=== PATIENT | male | born 1980 | race African-American/Black ===

== ENCOUNTER 2017-03-15 18:58 | Emergency (ER) | payer OTHER ==
[~2017-03-15] VITALS: Ht 180.3 cm; Wt 81.6 kg
[~2017-03-15 18:58] MED LIST: BACLOFEN10 MG ORAL; BACTRIM DS TAB1 EAC1 ORAL; COLACE100 MG ORAL; DIFLUCAN200 MG ORAL; FLONASE1 SPRAYS NASAL; HYDROCHLOROTH12.5 MG ORAL; IBUPROFEN600 MG ORAL; IBUPROFEN800 MG ORAL; KEFLEX500 MG ORAL; KENALOG 0.1% CR15 GM APPLIC; LEVAQUIN500 MG ORAL; MEDROL DOSEPAK4 MG ORAL; METRONIDAZOLE500 MG ORAL; NKM; NORCO 5-325 TA1 EACH ORAL; NYSTATIN CREAM15 GM TOPIC; TRAMADOL HCL50 MG ORAL
[2017-03-15 19:12] VITALS: BP 166/88
--- NOTE | 2017-03-15 19:18 | Emergency Room Report ---
History of Present Illness General Chief Complaint: Upper Respiratory Illness Source: Patient Present Illness HPI The patient is a 36-year-old male presenting for nasal discharge, sneezing, and coughing. 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 He denies any known sick contacts or recent travel. He denies any fever or chills. He states that he hears occasional wheezing while breathing. He denies history of asthma. He denies any other symptoms including nausea, vomiting, chest pain, shortness of breath, rash, headache, dizziness Allergies: Coded Allergies: No Known Allergies (Unverified , 07/24/12) Patient History Past Medical History: see triage record Pertinent Family History: none Reviewed Nursing Documentation: PMH: Agreed, PSxH: Agreed Nursing Documentation-PMH Hx Cardiac Problems: No Hx Hypertension: Yes Hx Cancer: No Hx Gastrointestinal Problems: Yes - Diverticulosis Hx Neurological Problems: No Review of Systems All Other Systems: negative except mentioned in HPI Physical Exam Vital Signs Date Time Temp Pulse Resp B/P (MAP) Pulse Ox O2 Delivery O2 Flow Rate FiO2 03/15/17 19:02 98.1 70 20 166/88 98 Room Air Sp02 EP Interpretation: reviewed, normal General Appearance: no apparent distress, alert, GCS 15, non-toxic Head: normocephalic, atraumatic Eyes: bilateral eye normal inspection, bilateral eye PERRL ENT: hearing grossly normal, normal pharynx, no angioedema, normal voice, uvula midline, nasal congestion Neck: full range of motion, supple/symm/no masses Respiratory: chest non-tender, lungs clear, normal breath sounds, speaking full sentences Musculoskeletal: back normal, gait/station normal, normal range of motion, non- tender Neurologic: alert, oriented x3, responsive, motor strength/tone normal, sensory intact, speech normal Psychiatric: judgement/insight normal, memory normal, mood/affect normal, no suicidal/homicidal ideation Skin: normal color, no rash, warm/dry, well hydrated Lymphatic: no adenopathy Medical Decision Making PA Attestation Dr. Weber is my supervising physician. Patient management was discussed with my supervising physician Diagnostic Impression: Primary Impression: Allergic rhinitis Qualified Codes: J30.9 - Allergic rhinitis, unspecified ER Course The patient is a 36-year-old male presenting for allergic symptoms after being exposed to particles at work Differential diagnosis include but not limited to pharyngitis, rhinitis, sinusitis, AOM, bronchitis, PNA Physical exam: Afebrile. No apparent distress HEENT exam reveals bilateral nasal congestion with edema. Otherwise unremarkable Chest x-ray unremarkable The patient will be discharged home with prescription for claritin and flonase. ER precautions given Chest X-Ray Diagnostic Results Chest X-Ray Diagnostic Results : Chest X-Ray Ordered: Yes # of Views/Limited/Complete: 1 View Indication: Other - cough EP Interpretation: Yes Interpretation: no consolidation, no effusion, no pneumothorax Impression: No acute disease Electronically Signed by: DO FREEDOM Sheriff Scribe Text I am acting as scribe for my supervising physician. My supervising physician's interpretation of the chest xrays are there is no consolidation, no effusion, no acute cardiopulmonary disease, no pneumothorax Last Vital Signs Date Time Temp Pulse Resp B/P (MAP) Pulse Ox O2 Delivery O2 Flow Rate FiO2 03/15/17 19:12 98.1 70 20 166/88 98 Room Air Status: improved Disposition: HOME, SELF-CARE Condition: Improved Scripts Loratadine/Pseudoephedrine (CLARITIN-D 24 HOUR TABLET) 1 Each Tab.er.24h 1 TAB PO DAILY, #30 TAB Prov: TERZIRAN PARKER P.A. 03/15/17 Fluticasone Propionate (Flonase Allergy Relief) 9.9 Ml [place].susp 1 SPRAYS NS DAILY, #10 ML Prov: TERZIAN,RAN P.A. 03/15/17 RAN MCKINNEY P.A. Mar 15, 2017 19:18
[2017-03-15] MEDS ORDERED: CLARITIN-D 241 EACH PO (19:35)
[2017-03-15] MEDS ORDERED: FLONASE ALLERG9.9 ML NS (19:35)
[2017-03-15 19:44] VITALS: BP 160/80
--- NOTE | 2017-03-16 10:55 | Diagnostic Imaging Report ---
Indication: COUGH Technique: One view of the chest Comparison: 05/07/2011 Findings: Lungs and pleural spaces are clear. Heart size is normal. No significant change Impression: Negative
== END 2017-03-15 19:44 | disposition home or self-care (01) ==
LOC: EMR 19:20
DX: J30.9 Allergic rhinitis, unspecified (principal); I10 Essential (primary) hypertension; K57.90 Diverticulosis of intestine, part unspecified, without perforation or abscess without bleeding
CPT/HCPCS: 71010; 99284

== ENCOUNTER 2017-05-24 18:50 | Emergency (ER) | payer OTHER ==
[~2017-05-24] VITALS: Ht 180.3 cm; Wt 86.2 kg
[~2017-05-24 18:50] MED LIST changes: +CLARITIN-D 241 EACH PO; +FLONASE ALLERG9.9 ML NS
[2017-05-24] MEDS ORDERED: UNOBMED (19:19)
--- NOTE | 2017-05-24 19:25 | Emergency Room Report ---
History of Present Illness General Chief Complaint: Allergies Source: Patient Present Illness HPI 36-year-old male presents emergency department complaining of sneezing, rhinorrhea, intermittent nasal congestion times one week. Patient is requesting medication refill for previously prescribed allergy nasal spray. 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 Patient denies fevers, chills, cough, neck pain or stiffness.Denies rash, swelling of the lips or tongue. Allergies: Coded Allergies: No Known Allergies (Unverified , 07/24/12) Patient History Past Medical History: see triage record Past Surgical History: none Pertinent Family History: none Immunizations: UTD Reviewed Nursing Documentation: PMH: Agreed, PSxH: Agreed Nursing Documentation-PMH Past Medical History: No History, Except For Hx Cardiac Problems: No Hx Hypertension: Yes Hx Cancer: No Hx Gastrointestinal Problems: Yes - Diverticulosis Hx Neurological Problems: No Review of Systems All Other Systems: negative except mentioned in HPI Physical Exam Vital Signs Date Time Temp Pulse Resp B/P (MAP) Pulse Ox O2 Delivery O2 Flow Rate FiO2 05/24/17 19:14 97.7 57 16 192/112 98 Room Air Sp02 EP Interpretation: reviewed, normal General Appearance: no apparent distress, alert, GCS 15, non-toxic Head: normocephalic, atraumatic Eyes: bilateral eye normal inspection, bilateral eye PERRL ENT: hearing grossly normal, normal voice, uvula midline, nasal congestion Neck: full range of motion Respiratory: lungs clear, normal breath sounds, speaking full sentences Cardiovascular #1: regular rate, rhythm Musculoskeletal: back normal, gait/station normal, normal range of motion, non- tender Neurologic: alert, oriented x3, responsive, motor strength/tone normal, sensory intact, speech normal Skin: normal color, no rash, warm/dry, well hydrated Medical Decision Making PA Attestation Dr. peck is my supervising Physician whom patient management has been discussed with. Diagnostic Impression: Primary Impression: Allergic rhinitis Qualified Codes: J30.2 - Other seasonal allergic rhinitis ER Course 36-year-old male presents emergency department complaining of sneezing, rhinorrhea, intermittent nasal congestion times one week. Patient is requesting medication refill for previously prescribed allergy nasal spray. 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 Patient denies fevers, chills, cough, neck pain or stiffness.Denies rash, swelling of the lips or tongue. Ddx considered but are not limited to: rebound congestion, URI, rhinitis, allergies, sinusitis just to name a few Vital signs: are WNL, pt. is afebrile H&PE are most consistent with need for medication refill for nasal spray to manage allergic rhinitis. ORDERS: none required at this time, the diagnosis is clinical ED INTERVENTIONS: None required at this time. DISCHARGE: At this time pt. is stable for d/c to home. Will provide printed patient care instructions, and any necessary prescriptions. Care plan and follow up instructions have been discussed with the patient prior to discharge. Last Vital Signs Date Time Temp Pulse Resp B/P (MAP) Pulse Ox O2 Delivery O2 Flow Rate FiO2 05/24/17 19:14 97.7 57 16 192/112 98 Room Air Disposition: HOME, SELF-CARE Condition: Stable Scripts Mometasone Furoate (NASONEX) 17 Gm [place].pump 2 SPRAYS NASAL DAILY, #17 GM 0 Refills Prov: Swathi Puente 05/24/17 Patient Instructions: Allergies Additional Instructions: Take medications as directed. Follow up with a Primary Care Provider in 3-5 days, even if your symptoms have resolved. --Please review list of primary care clinics, if you do not already have a primary care provider Return sooner to ED if new symptoms occur, or current symptoms become worse. - Please note that this Emergency Department Report was dictated using SecurSolutionsoperating room assistant technology software, occasionally this can lead to erroneous entry secondary to interpretation by the dictation equipment. Swathi Puente May 24, 2017 19:25
[2017-05-24] MEDS ORDERED: NASONEX17 GM NASAL (19:26)
[2017-05-24 19:31] VITALS: BP 172/99
== END 2017-05-24 19:30 | disposition home or self-care (01) ==
LOC: EMR 19:25
DX: J30.9 Allergic rhinitis, unspecified (principal); I10 Essential (primary) hypertension
CPT/HCPCS: 99283

== ENCOUNTER 2018-06-24 12:39 | Emergency (ER) | payer OTHER ==
[~2018-06-24] VITALS: Ht 180.3 cm; Wt 86.2 kg
[~2018-06-24 12:39] MED LIST changes: +NASONEX17 GM NASAL; +UNOBMED
[2018-06-24] MEDS ORDERED: AMLODIPINE BESY10 MG ORAL (12:52)
[2018-06-24 13:06] VITALS: BP 146/87
[2018-06-24] MEDS ORDERED: PREDNISONE20 MG ORAL (13:20)
[2018-06-24] MEDS ORDERED: BENADRYL25 MG ORAL (13:20)
[2018-06-24 13:30] VITALS: BP 146/87
--- NOTE | 2018-06-24 18:07 | Emergency Room Report ---
History of Present Illness General Chief Complaint: Allergic Reaction Source: Patient Present Illness HPI The patient is a 38-year-old male presenting for possible allergic reaction. He states that he has been taking Bactrim for a skin infection. Two days after beginning this course of antibiotics, he developed hives. He states that he then stopped the medication and the hives resolved. He admits to having similar reaction after using Bactrim in the past. He states that the symptoms have completely resolved at this point. He denies any other symptoms including N, V, F, chills, SOB, CP, dizziness, diarrhea Allergies: Coded Allergies: No Known Allergies (Unverified , 07/24/12) Patient History Past Medical History: see triage record Pertinent Family History: none Reviewed Nursing Documentation: PMH: Agreed; PSxH: Agreed Nursing Documentation-PMH Past Medical History: No History, Except For Hx Cardiac Problems: No Hx Hypertension: Yes Hx Cancer: No Hx Gastrointestinal Problems: Yes - Diverticulosis Hx Neurological Problems: No Review of Systems All Other Systems: negative except mentioned in HPI Physical Exam Vital Signs Date Time Temp Pulse Resp B/P (MAP) Pulse Ox O2 Delivery O2 Flow Rate FiO2 06/24/18 12:48 98.1 68 17 153/103 98 Room Air Sp02 EP Interpretation: reviewed, normal General Appearance: no apparent distress, alert, GCS 15, non-toxic Head: normocephalic, atraumatic Eyes: bilateral eye normal inspection, bilateral eye PERRL Neck: full range of motion, supple/symm/no masses Respiratory: chest non-tender, lungs clear, normal breath sounds, speaking full sentences Cardiovascular #1: regular rate, rhythm, no edema Musculoskeletal: back normal, gait/station normal, normal range of motion, non- tender Neurologic: alert, oriented x3, responsive, motor strength/tone normal, sensory intact, speech normal Psychiatric: judgement/insight normal, memory normal, mood/affect normal, no suicidal/homicidal ideation Skin: normal color, no rash, warm/dry, well hydrated Lymphatic: no adenopathy Medical Decision Making PA Attestation Dr. Zapata is my supervising physician. Patient management was discussed with my supervising physician Diagnostic Impression: Primary Impression: Allergic reaction Qualified Codes: T78.40XA - Allergy, unspecified, initial encounter ER Course The patient is a 38-year-old male presenting for possible allergic reaction. Differential diagnosis considered not limited to: Anaphylaxis, hives, contact dermatitis, among others Physical exam: No apparent distress No hypotension No angioedema RRR. Lungs clear to auscultation bilaterally Skin warm and dry. No erythema. No wheals. The patient was told to discontinue Bactrim and to follow-up with his primary doctor as soon as possible. He was also told to have allergy testing. He is given prescription for short course of oral steroids and Benadryl. ER precautions given Last Vital Signs Date Time Temp Pulse Resp B/P (MAP) Pulse Ox O2 Delivery O2 Flow Rate FiO2 06/24/18 13:30 98.1 74 17 146/87 99 Room Air Status: improved Disposition: HOME, SELF-CARE Condition: Improved Scripts Prednisone* (PREDNISONE*) 20 Mg Tablet 20 MG ORAL DAILY, #5 TAB 0 Refills Prov: RAN MCKINNEY 06/24/18 Diphenhydramine Hcl* (BENADRYL*) 25 Mg Capsule 25 MG ORAL Q6H PRN for Itching, #20 CAP Prov: RAN MCKINNEY 06/24/18 Referrals: NOT CHOSEN [facility]/,REFERRING (PCP) Patient Instructions: Epinephrine injection, Hives, Drug Allergy Additional Instructions: I discussed my findings with the patient. All questions and concerns have been answered. Treatment and medication compliance have been addressed. I advised the patient that they need to follow up with PMD in 3-5 days. Return to ED if symptoms worsen, new symptoms arise, or if needed for any reason. Patient verbalized understanding of discharge instructions. Please follow up with your primary doctor for further testing and treatment as soon as possible. RAN MCKINNEY Jun 24, 2018 18:07
== END 2018-06-24 13:30 | disposition home or self-care (01) ==
LOC: EMR 13:00
DX: L50.0 Allergic urticaria (principal); T37.0X5A Adverse effect of sulfonamides, initial encounter; I10 Essential (primary) hypertension
CPT/HCPCS: 99283

== ENCOUNTER 2018-11-08 14:46 | Emergency (ER) | payer OTHER ==
[~2018-11-08] VITALS: Ht 180.3 cm; Wt 83.9 kg
[~2018-11-08 14:46] MED LIST changes: +AMLODIPINE BESY10 MG ORAL; +BENADRYL25 MG ORAL; +PREDNISONE20 MG ORAL
--- NOTE | 2018-11-08 15:01 | NUR ---
ED Nurse Note: Pt came into the ER w/ complaints of a rash on bilateral axilla x 2 weeks. Pt states that he usually has a cream for it. Pt denies having pain but states that it itches. No redness or swelling noted. Pt is A + O x4. Ambulatory. Skin warm to touch.
[2018-11-08 15:02] VITALS: BP 170/103
[2018-11-08] MEDS ORDERED: KENALOG 0.5% CR15 GM APPLIC (15:29)
[2018-11-08 15:35] VITALS: BP 169/100
--- NOTE | 2018-11-08 15:36 | NUR ---
ER DISCHARGE NOTE: Patient is cleared to be discharged per ERMD, pt is aox4, on room air, with stable vital signs. pt was given dc and prescription instructions, pt was able to verbalize understanding, pt id band removed without complications. pt is able to ambulate with steady gait. pt took all belongings.
--- NOTE | 2018-11-08 15:51 | Emergency Room Report ---
History of Present Illness General Chief Complaint: Skin Rash/Abscess Source: Patient Present Illness HPI 38-year-old male presents to the emergency department complaining of recurrent dermatitis in the bilateral axillary areas for which she will need a medication refill for her. Patient states that he is been having this chronic condition for over 2 years now and his symptoms are intermittent and usually resolve completely with application of triamcinolone cream. Patient states he is currently out of his medication. Pt. denies fevers, chills or swollen tender lymph nodes. Denies lesions/rashes elsewhere on the body. Denies new medications or body washes or creams. Denies swelling of the lips, tongue , throat or airway. Denies wheezing, or shortness of breath. Denies recent travel , recent illness or ill contacts. denies blisters, oral lesions, or sloughing of the skin. He denies pain. Allergies: Coded Allergies: No Known Allergies (Unverified , 07/24/12) Patient History Past Medical History: see triage record Past Surgical History: none Pertinent Family History: none Immunizations: UTD Reviewed Nursing Documentation: PMH: Agreed; PSxH: Agreed Nursing Documentation-PMH Past Medical History: No History, Except For Hx Cardiac Problems: No Hx Hypertension: Yes Hx Cancer: No Hx Gastrointestinal Problems: Yes - Diverticulitis Hx Neurological Problems: No Review of Systems All Other Systems: negative except mentioned in HPI Physical Exam Vital Signs Date Time Temp Pulse Resp B/P (MAP) Pulse Ox O2 Delivery O2 Flow Rate FiO2 11/08/18 14:55 98.1 68 18 96 Room Air 11/08/18 15:02 170/103 Sp02 EP Interpretation: reviewed, normal General Appearance: no apparent distress, alert, GCS 15, non-toxic Head: normocephalic, atraumatic Eyes: bilateral eye normal inspection, bilateral eye PERRL ENT: hearing grossly normal, normal voice Neck: full range of motion Respiratory: chest non-tender, lungs clear, normal breath sounds, no wheezing, speaking full sentences Cardiovascular #1: regular rate, rhythm Musculoskeletal: back normal, gait/station normal, normal range of motion, non- tender Neurologic: alert, oriented x3, responsive, motor strength/tone normal, sensory intact, speech normal, grossly normal Psychiatric: judgement/insight normal Skin: normal color, warm/dry, well hydrated, rash - erythematous dry plaques in the axilla bialterally, no LAD, no blisters, vessicles or fluctuance. Lymphatic: no adenopathy Medical Decision Making PA Attestation Dr. Lowry is my supervising Physician whom patient management has been discussed with. Diagnostic Impression: Primary Impression: Dermatitis ER Course 38-year-old male presents to the emergency department complaining of recurrent dermatitis in the bilateral axillary areas for which she will need a medication refill for her. Patient states that he is been having this chronic condition for over 2 years now and his symptoms are intermittent and usually resolve completely with application of triamcinolone cream. Patient states he is currently out of his medication. Pt. denies fevers, chills or swollen tender lymph nodes. Denies lesions/rashes elsewhere on the body. Denies new medications or body washes or creams. Denies swelling of the lips, tongue , throat or airway. Denies wheezing, or shortness of breath. Denies recent travel , recent illness or ill contacts. denies blisters, oral lesions, or sloughing of the skin. He denies pain. Ddx considered but are not limited to cellulitis, scabies, shingles, varicella, dermatitis, urticaria, eczema, tinea, viral exanthem, SJS Vital signs: are WNL, pt. is afebrile H&PE are most consistent with dermatitis ORDERS: none required at this time, the diagnosis is clinical ED INTERVENTIONS: None required at this time. DISCHARGE: At this time pt. is stable for d/c to home. Will provide printed patient care instructions, and any necessary prescriptions. Care plan and follow up instructions have been discussed with the patient prior to discharge. Last Vital Signs Date Time Temp Pulse Resp B/P (MAP) Pulse Ox O2 Delivery O2 Flow Rate FiO2 11/08/18 15:02 98.2 75 20 170/103 97 Room Air Status: improved Disposition: HOME, SELF-CARE Condition: Stable Scripts Triamcinolone Acet (Triamcinolone Acetonide) 15 Gm Cream..g. 1 APPLIC APPLIC BID, #15 GM 3 Refills Prov: Swathi Puente 11/08/18 Patient Instructions: Rash Additional Instructions: Take medications as directed. Follow up with a Primary Care Provider in 3-5 days, even if your symptoms have resolved. --Please review list of primary care clinics, if you do not already have a primary care provider Return sooner to ED if new symptoms occur, or current symptoms become worse. - Please note that this Emergency Department Report was dictated using [employer] cup expander technology software, occasionally this can lead to erroneous entry secondary to interpretation by the dictation equipment. Swathi Puente November 08, 2018 15:51
== END 2018-11-08 15:36 | disposition home or self-care (01) ==
LOC: EMR 15:20
DX: L30.9 Dermatitis, unspecified (principal); I10 Essential (primary) hypertension
CPT/HCPCS: 99282

== ENCOUNTER 2019-01-09 14:12 | Emergency (ER) | payer OTHER ==
[~2019-01-09] VITALS: Ht 180.3 cm; Wt 86.2 kg
[~2019-01-09 14:12] MED LIST changes: +KENALOG 0.5% CR15 GM APPLIC
[2019-01-09 14:27] VITALS: BP 128/80
--- NOTE | 2019-01-09 14:44 | Emergency Room Report ---
History of Present Illness General Chief Complaint: Abdominal Pain Source: Patient Present Illness HPI Patient presents with complaints of lower abdominal pressure and discomfort he reports that he has had diverticulitis several times and this felt similar to the initial sensation of that Denies any chest pain denies any vomiting denies any diarrhea He did feel that he had some decreased bowel movements over the past several days denies any rash denies any change in medications denies any trauma Allergies: Coded Allergies: No Known Allergies (Unverified , 07/24/12) Patient History Past Medical History: see triage record Pertinent Family History: none Reviewed Nursing Documentation: PMH: Agreed; PSxH: Agreed Nursing Documentation-PM Past Medical History: No History, Except For Hx Cardiac Problems: No Hx Hypertension: Yes Hx Cancer: No Hx Gastrointestinal Problems: Yes - Diverticulitis Hx Neurological Problems: No Review of Systems All Other Systems: negative except mentioned in HPI Physical Exam Vital Signs Date Time Temp Pulse Resp B/P (MAP) Pulse Ox O2 Delivery O2 Flow Rate FiO2 01/09/19 14:18 98.1 84 21 128/80 (96) 98 Room Air Sp02 EP Interpretation: reviewed, normal General Appearance: well appearing, no apparent distress Head: normocephalic, atraumatic Eyes: bilateral eye PERRL, bilateral eye EOMI ENT: hearing grossly normal, normal pharynx, TMs + canals normal, uvula midline Neck: full range of motion, supple, no meningismus, no bony tend Respiratory: lungs clear, normal breath sounds, no rhonchi, no respiratory distress, no retraction, no accessory muscle use Cardiovascular #1: normal peripheral pulses, regular rate, rhythm, no edema, no gallop, no JVD, no murmur Gastrointestinal: normal bowel sounds, non tender - However subjectively complains left lower abdomen discomfort, soft, no mass, no organomegaly, non- distended, no guarding, no hernia, no pulsatile mass, no rebound Genitourinary: no CVA tenderness Musculoskeletal: normal inspection Neurologic: oriented x3, responsive, bacteriologist soil III-XII nml as tested, motor strength/ tone normal, sensory intact Psychiatric: mood/affect normal Skin: other Lymphatic: normal inspection, no adenopathy Medical Decision Making Diagnostic Impression: Primary Impression: Abdominal pain Additional Impression: Diverticulitis ER Course With the history exam and presentation, multiple differentials considered, including but not limited to appendicitis, gastritis, cholecystitis, diverticulitis Patient's abdomen is soft patient is afebrile Initial blood work reveals normal white blood cell count On repeat evaluation patient continues to feel well Given some of the increased pressure and discomfort given the previous diverticulitis patient will be treated symptomatically did not require initial imaging study and is stable for close follow-up attempt Labs Test 01/09/19 14:45 White Blood Count 6.0 K/UL (4.8-10.8) Red Blood Count 4.47 M/UL (4.70-6.10) Hemoglobin 15.7 G/DL (14.2-18.0) Hematocrit 43.7 % (42.0-52.0) Mean Corpuscular Volume 98 FL (80-99) Mean Corpuscular Hemoglobin 35.2 PG (27.0-31.0) Mean Corpuscular Hemoglobin Concent 36.0 G/DL (32.0-36.0) Red Cell Distribution Width 10.1 % (11.6-14.8) Platelet Count 272 K/UL (150-450) Mean Platelet Volume 6.5 FL (6.5-10.1) Neutrophils (%) (Auto) 50.3 % (45.0-75.0) Lymphocytes (%) (Auto) 36.9 % (20.0-45.0) Monocytes (%) (Auto) 8.7 % (1.0-10.0) Eosinophils (%) (Auto) 1.8 % (0.0-3.0) Basophils (%) (Auto) 2.4 % (0.0-2.0) Sodium Level 145 MMOL/L (136-145) Potassium Level 4.0 MMOL/L (3.5-5.1) Chloride Level 107 MMOL/L (98-107) Carbon Dioxide Level 26 MMOL/L (21-32) Anion Gap 12 mmol/L (5-15) Blood Urea Nitrogen 9 mg/dL (7-18) Creatinine 1.0 MG/DL (0.55-1.30) Estimat Glomerular Filtration Rate > 60 mL/min (>60) Glucose Level 96 MG/DL (74-106) Calcium Level 9.4 MG/DL (8.5-10.1) Total Bilirubin 0.4 MG/DL (0.2-1.0) Aspartate Amino Transf (AST/SGOT) 33 U/L (15-37) Alanine Aminotransferase (ALT/SGPT) 39 U/L (12-78) Alkaline Phosphatase 91 U/L (46-116) Total Protein 7.6 G/DL (6.4-8.2) Albumin 4.2 G/DL (3.4-5.0) Globulin 3.4 g/dL Albumin/Globulin Ratio 1.2 (1.0-2.7) Lipase 179 U/L (73-393) Rhythm Strip Diag. Results Rate: 88 Rhythm: NSR, no PVC's Last Vital Signs Date Time Temp Pulse Resp B/P (MAP) Pulse Ox O2 Delivery O2 Flow Rate FiO2 01/09/19 14:18 98.1 84 21 128/80 (96) 98 Room Air Status: improved Disposition: HOME, SELF-CARE Condition: Improved Scripts Docusate Sodium* (COLACE*) 100 Mg Capsule 100 MG ORAL TWICE A DAY, #21 CAP Prov: Tom Zapata DO 01/09/19 Levofloxacin* (LEVAQUIN*) 500 Mg Tablet 500 MG ORAL DAILY, #10 TAB Prov: Tom Zapata DO 01/09/19 Metronidazole* (FLAGYL*) 500 Mg Tablet 500 MG ORAL THREE TIMES A DAY for 10 Days, #30 TAB Prov: Tom Zapata DO 01/09/19 Additional Instructions: Patient is provided with the discharge instructions notified to follow up with primary doctor in the next 2-3 days otherwise return to the er with any worsening symptoms. Please note that this report is being documented using [employer] technology. This can lead to erroneous entry secondary to incorrect interpretation by the dictating instrument. Tom Zapata DO Jan 09, 2019 14:44
--- NOTE | 2019-01-09 14:53 | NUR ---
ED Nurse Note: pt walked in to ER c/o abdominal pain 4/10 and no BM for last 3 days. pt aao x4 and ambulatory. skin clean and intact. calm and cooperative. pt is in gown.
[2019-01-09] MEDS ORDERED: METRONIDAZOLE500 MG ORAL (14:57)
[2019-01-09] MEDS ORDERED: COLACE100 MG ORAL (14:57)
[2019-01-09] MEDS ORDERED: LEVAQUIN500 MG ORAL (14:57)
[2019-01-09 15:15] LABS: ANION GAP 12 mmol/L (5-15); BLOOD UREA NITROGEN 9 mg/dL (7-18); CALCIUM 9.4 MG/DL (8.5-10.1); CARBON DIOXIDE 26 MMOL/L (21-32); CHLORIDE 107 MMOL/L (98-107); SODIUM 145 MMOL/L (136-145)
[2019-01-09 15:19] LABS: ALANINE AMINOTRANSFERASE 39 U/L (12-78); ALBUMIN 4.2 G/DL (3.4-5.0); ALBUMIN/GLOBULIN RATIO 1.2 (1.0-2.7); ALKALINE PHOSPHATASE 91 U/L (46-116); ASPARTATE AMINO TRANSFERASE 33 U/L (15-37); BILIRUBIN,TOTAL 0.4 MG/DL (0.2-1.0)
[2019-01-09 15:43] LABS: BASOPHILS % (AUTO) 2.4 % (0.0-2.0); EOSINOPHILS % (AUTO) 1.8 % (0.0-3.0); HEMATOCRIT 43.7 % (42.0-52.0); HEMOGLOBIN 15.7 G/DL (14.2-18.0); LYMPHOCYTES % (AUTO) 36.9 % (20.0-45.0); MEAN CORPUSCULAR VOLUME 98 FL (80-99); MONOCYTES % (AUTO) 8.7 % (1.0-10.0); NEUTROPHILS % (AUTO) 50.3 % (45.0-75.0); PLATELET COUNT 272 K/UL (150-450); RED BLOOD COUNT 4.47 M/UL (4.70-6.10); RED CELL DISTRIBUTION WIDTH 10.1 % (11.6-14.8)
--- NOTE | 2019-01-09 16:13 | NUR ---
ED Nurse Note: ERMD at bedside, informing patient about test results.
[2019-01-09] MEDS ORDERED: Levofloxacin 500mg tab ORAL ONE (16:15)
--- NOTE | 2019-01-09 16:32 | NUR ---
ED Nurse Note: pt ambulated to bathroom with steady gait.
[2019-01-09 17:22] VITALS: BP 122/73
--- NOTE | 2019-01-09 17:23 | NUR ---
ER DISCHARGE NOTE: Patient is cleared to be discharged per ERMD after IV ATB completed, pt is aox4, accompanied by spouse, on room air, with stable vital signs. pt was given dc and prescription instructions, pt was able to verbalize understanding, pt id band and iv site removed without complications. pt is able to ambulate with steady gait. pt took all belongings.
== END 2019-01-09 17:22 | disposition home or self-care (01) ==
LOC: EMR 15:25
DX: R10.30 Lower abdominal pain, unspecified (principal); K57.92 Diverticulitis of intestine, part unspecified, without perforation or abscess without bleeding; I10 Essential (primary) hypertension
CPT/HCPCS: 36415; 80053; 83690; 85025; 96361; 96365; 99284

== ENCOUNTER 2020-01-10 12:54 | Emergency (ER) | payer OTHER ==
[~2020-01-10] VITALS: Ht 180.3 cm; Wt 86.2 kg
[2020-01-10] MEDS ORDERED: Acetaminophen 500mg (ES) tab ORAL ONE (13:15)
--- NOTE | 2020-01-10 13:20 | Emergency Room Report ---
History of Present Illness General Chief Complaint: Lower Extremity Injury Source: Patient, Medical Record Present Illness HPI Patient is a 39-year-old male who presents after increased right-sided foot pain. He states a metal object fell onto his foot at [employer]. He states this weighed approximately 6 pounds. Injury occurred this morning approximately 7 AM. Has been able to ambulate since injury. Patient had not been having any numbness or weakness since then but has been having increased pain. Allergies: Coded Allergies: No Known Allergies (Unverified , 07/24/12) COVID-19 Screening Contact w/high risk pt: No Experienced COVID-19 symptoms?: No COVID-19 Testing performed PROCESS ANALYST: No Patient History Past Medical History: see triage record Reviewed Nursing Documentation: PMH: Agreed; PSxH: Agreed Nursing Documentation-PMH Past Medical History: No History, Except For Hx Cardiac Problems: No Hx Hypertension: Yes Hx Cancer: No Hx Gastrointestinal Problems: Yes - Diverticulitis Hx Neurological Problems: No Review of Systems All Other Systems: negative except mentioned in HPI Physical Exam Vital Signs Date Time Temp Pulse Resp B/P (MAP) Pulse Ox O2 Delivery O2 Flow Rate FiO2 01/10/20 13:06 98.4 93 18 160/87 (111) 96 Room Air General Appearance: well appearing, no apparent distress, alert, GCS 15 Head: normocephalic, atraumatic ENT: hearing grossly normal, normal voice Neck: full range of motion, supple Respiratory: no respiratory distress, speaking full sentences Cardiovascular #1: normal inspection Gastrointestinal: normal inspection Musculoskeletal: normal inspection, gait/station normal Neurologic: alert, motor strength/tone normal, biomedical equipment support specialist III-XII nml as tested, oriented x3, normal gait Psychiatric: mood/affect normal Skin: no rash Medical Decision Making Diagnostic Impression: Primary Impression: Foot pain, right Additional Impression: Contusion ER Course Patient presented for right foot pain. Differential diagnosis includes but is not limited to fracture, contusion, sprain among others. X-ray imaging was ordered due to patient's recent trauma.X-ray imaging 3 views interpreted by me showed normal bony alignment without an fracture. Patient will be discharged home. He was given an Baljeet wrap. He was noted to be ambulatory at the time of discharge. He was advised to follow-up with his doctor for recheck. The patient is advised to follow up with primary care doctor in 1-2 days. Patient is advised to return if any worsening condition or if any changes in status that are concerning. This report is dictated with [employer] ssis architect software which may occasionally lead to discrepancies related to use of this software. Last Vital Signs Date Time Temp Pulse Resp B/P (MAP) Pulse Ox O2 Delivery O2 Flow Rate FiO2 01/10/20 13:06 98.4 93 18 160/87 (111) 96 Room Air Status: improved Disposition: HOME, SELF-CARE Condition: Stable Scripts Diclofenac Sodium (VOLTAREN) 100 Gm Gel..gram. 5 GM TP DAILY, #100 GM Prov: Gene San MD 01/10/20 Acetaminophen (Acetaminophen) 500 Mg Tablet 500 MG ORAL Q4H for PAIN, #30 TAB Prov: Gene San MD 01/10/20 Gene San MD Jan 10, 2020 13:20
[2020-01-10] MEDS ORDERED: ACETAMINOPHEN500 M5 ORAL (13:48)
[2020-01-10] MEDS ORDERED: VOLTAREN100 G1 TP (13:48)
[2020-01-10 14:00] VITALS: BP 153/82
--- NOTE | 2020-01-10 16:39 | Diagnostic Imaging Report ---
Indication: Right foot pain Technique: 3 views right foot Comparison: None Findings: No acute fractures. No dislocations. The joint spaces are preserved. Impression: Negative
== END 2020-01-10 14:01 | disposition home or self-care (01) ==
LOC: EMR 13:18
DX: S90.31XA Contusion of right foot, initial encounter (principal); M79.671 Pain in right foot; I10 Essential (primary) hypertension; W22.8XXA Striking against or struck by other objects, initial encounter; Y93.9 Activity, unspecified; Y92.511 Restaurant or cafe as the place of occurrence of the external cause
CPT/HCPCS: 99283